=== PATIENT | female | born 1955 ===

== ENCOUNTER → 2025-04-21 14:01 | Outpatient (BNVA) | payer MEDICARE, SELFPAY | PROVIDERS: PCP Nurse Practitioner; Referring Provider Nurse Practitioner; Visit Provider Student in an Organized Health Care Education/Training Program | DX: M76.31 Iliotibial band syndrome, right leg (principal); M70.61 Trochanteric bursitis, right hip; M25.551 Pain in right hip | CPT/HCPCS: 20610; J1010 ==